=== PATIENT | male | born 1975 | race Caucasian/White ===

== ENCOUNTER 2017-06-14 07:59 | Inpatient (IN) | payer MEDICAID ==
--- NOTE | 2017-06-14 08:00 | EDPHY ---
H & P Time Seen by Provider: 06/14/17 07:59 HPI/ROS: CHIEF COMPLAINT: Lightheaded HISTORY OF PRESENT ILLNESS: Patient arrives by EMS having felt sick for the last 2-3 days with nausea, myalgias, joint aches, subjective fever and mild headache. Today he felt very lightheaded and sat down at his desk and felt sick enough that he asked he EMS to bring him to the hospital for evaluation. Patient started feeling sick 3 days ago. He has had nausea and vomited several times and has decreased oral intake. Diarrhea. No abdominal pain. He has diffuse myalgias in all extremities and his low back which are severe, he took 600 mg oral ibuprofen today at 4:00 a.m.. He does work at [employer] and could be exposed to other sick people. REVIEW OF SYSTEMS: Eye: no change in vision ENT: no sore throat, no dental symptoms. Cardiac: no chest pain or syncope Pulmonary: Coughing but no hemoptysis and not short of breath Abdomen: Decreased oral intake Musculoskeletal: Does not have neck stiffness Skin: no rash Neuro: Mild headache, not severe Constitutional: Symptomatic fever and chills : no urinary symptoms A comprehensive 10 point review of systems is otherwise negative aside from elements mentioned in the history of present illness. PAST MEDICAL HISTORY: Negative Social history: No IV drug abuse or foreign travel General Appearance: Alert and conversant, cooperative. Eyes: No scleral icterus. ENT, Mouth: Dry mucous membranes. Normal tympanic membranes. No trismus. Respiratory: Normal respiratory effort, breath sounds equal, lungs are clear to auscultation. Cardiovascular: Regular rate and rhythm. Gastrointestinal: Abdomen is soft and non tender. Neurological: Alert and oriented x3. Normally conversant. Face symmetric, normal movement and sensation in all extremities. Skin: Warm and dry, no rashes. Musculoskeletal: No peripheral edema and no joint swelling. No midline spinal tenderness. Normal range of motion of the neck, no meningeal signs. Psychiatric: Not agitated. Emergency Department course/MDM: Most likely viral syndrome giving the patient nausea decreased oral intake and dehydration evidence by clinically dry mucous membranes. Chest x-ray to evaluate for pneumonia, Zofran for nausea, pain medication. IV hydration. 932: Discussed with Melinda Schmidt for [facility]. Blood cultures x2, lactate screening, IV ceftriaxone 1 g and azithromycin 500 mg for presumably community-acquired pulmonary infection. Platelet count noted to be low at 47 but no evidence of active bleeding. Rhabdomyolysis noted with CPK greater than 5000. 2 L IV normal saline ordered. Does not have SIRS criteria on emergency department evaluation. Constitutional: Initial Vital Signs Temperature (C) 36.7 C 06/14/17 07:59 Heart Rate 76 06/14/17 07:59 Respiratory Rate 18 06/14/17 07:59 Blood Pressure 91/61 L 06/14/17 07:59 O2 Sat (%) 97 06/14/17 07:59 O2 Delivery Mode Room Air Allergies/Adverse Reactions: No Known Allergies Allergy (Unverified 06/14/17 08:19) Home Medications: Medication Instructions Recorded NK [No Known Home Meds] 06/14/17 Medical Decision Making - Diagnostics EKG Interpretation: 12-lead EKG interpreted by me; official reading is in trace master. My interpretation is sinus rhythm rate 82 with left atrial abnormality otherwise normal electrical intervals. Imaging Results: Imaging Impressions Chest X-Ray 06/14/17 08:23 Impression: Findings consistent with airways disease are noted. Differential Diagnosis: The differential for myalgias considered including but not limited to viral syndrome, myositis, rhabdomyolysis, contusions. - Data Points Laboratory Results: Laboratory Results 06/14/17 08:05 06/14/17 08:05 06/14/17 06/14/17 06/14/17 08:05 08:05 08:05 WBC RBC Hgb Hct MCV MCH MCHC RDW Plt Count MPV Neut % (Auto) Lymph % (Auto) Grundy % (Auto) Eos % (Auto) Baso % (Auto) Nucleat RBC Rel Count Absolute Neuts (auto) Absolute Lymphs (auto) Absolute Monos (auto) Absolute Eos (auto) Absolute Basos (auto) Absolute Nucleated RBC Immature Gran % Immature Gran # Platelet Estimate ESR Sodium 133 mEq/L L mEq/L (134-144) Potassium 3.5 mEq/L mEq/L (3.5-5.2) Chloride 96 mEq/L L mEq/L (97-110) Carbon Dioxide 22 mEq/l mEq/l (22-31) Anion Gap 15 mEq/L mEq/L (8-16) BUN 24 mg/dL H mg/dL (7-23) Creatinine 1.6 mg/dL H mg/dL (0.7-1.3) Estimated GFR 47 Glucose 99 mg/dL mg/dL (70-100) Calcium 6.5 mg/dL L mg/dL (8.5-10.4) Total Bilirubin 0.7 mg/dL mg/dL 0.7 mg/dL mg/dL (0.1-1.4) (0.1-1.4) Conjugated Bilirubin 0.5 mg/dL mg/dL (0.0-0.5) Unconjugated Bilirubin 0.2 mg/dL mg/dL (0.0-1.1) AST 179 IU/L H IU/L (17-59) ALT 64 IU/L IU/L (21-72) Alkaline Phosphatase 71 IU/L IU/L (38-126) Creatine Kinase 4975 IU/L H IU/L (0-224) CK-MB (CK-2) Fraction 23.80 ng/mL H ng/mL (0-3.19) CK-MB (CK-2) % 0.5 % % (0.0-4.0) Creatine Kinase Interp NEGATIVE (NEGATIVE) Total Protein 6.9 g/dL g/dL (6.3-8.2) Albumin 3.8 g/dL g/dL (3.5-5.0) Procalcitonin 0.32 ng/mL H ng/mL (0.02-0.10) TSH 1.990 uIU/mL uIU/mL (0.465-4.680) Free T4 0.94 ng/dL ng/dL (0.59-2.19) Free T3 2.53 pg/mL L pg/mL (2.77-5.27) 06/14/17 08:05 WBC 7.18 10^3/uL 10^3/uL (3.80-9.50) RBC 4.96 10^6/uL 10^6/uL (4.40-6.38) Hgb 15.3 g/dL g/dL (13.7-17.5) Hct 43.4 % % (40.0-51.0) MCV 87.5 fL fL (81.5-99.8) MCH 30.8 pg pg (27.9-34.1) MCHC 35.3 g/dL g/dL (32.4-36.7) RDW 11.9 % % (11.5-15.2) Plt Count 47 10^3/uL L 10^3/uL (150-400) MPV 13.7 fL H fL (8.7-11.7) Neut % (Auto) 85.1 % H % (39.3-74.2) Lymph % (Auto) 10.2 % L % (15.0-45.0) Grundy % (Auto) 3.8 % L % (4.5-13.0) Eos % (Auto) 0.0 % L % (0.6-7.6) Baso % (Auto) 0.3 % % (0.3-1.7) Nucleat RBC Rel Count 0.0 % % (0.0-0.2) Absolute Neuts (auto) 6.12 10^3/uL 10^3/uL (1.70-6.50) Absolute Lymphs (auto) 0.73 10^3/uL L 10^3/uL (1.00-3.00) Absolute Monos (auto) 0.27 10^3/uL L 10^3/uL (0.30-0.80) Absolute Eos (auto) 0.00 10^3/uL L 10^3/uL (0.03-0.40) Absolute Basos (auto) 0.02 10^3/uL 10^3/uL (0.02-0.10) Absolute Nucleated RBC 0.00 10^3/uL 10^3/uL (0-0.01) Immature Gran % 0.6 % % (0.0-1.1) Immature Gran # 0.04 10^3/uL 10^3/uL (0.00-0.10) Platelet Estimate DECREASED L (ADEQ) ESR 44 MM/HR H MM/HR (0-15) Sodium Potassium Chloride Carbon Dioxide Anion Gap BUN Creatinine Estimated GFR Glucose Calcium Total Bilirubin Conjugated Bilirubin Unconjugated Bilirubin AST ALT Alkaline Phosphatase Creatine Kinase CK-MB (CK-2) Fraction CK-MB (CK-2) % Creatine Kinase Interp Total Protein Albumin Procalcitonin TSH Free T4 Free T3 Medications Given: Discontinued Medications Acetaminophen (Tylenol) 650 mg PO EDNOW ONE Stop: 06/14/17 08:24 Last Admin: 06/14/17 08:30 Dose: 650 mg Hydromorphone HCl (Dilaudid) 0.5 mg IVP EDNOW ONE Stop: 06/14/17 08:23 Last Admin: 06/14/17 08:31 Dose: 0.5 mg Sodium Chloride (Ns) 1,000 mls @ 0 mls/hr IV ONCE ONE; Wide Open PRN Reason: Protocol Stop: 06/14/17 08:25 Last Admin: 06/14/17 08:31 Dose: 1,000 mls Azithromycin 500 mg/ Dextrose 255 mls @ 255 mls/hr IV EDNOW ONE PRN Reason: Protocol Stop: 06/14/17 10:24 Last Admin: 06/14/17 11:19 Dose: Not Given Ceftriaxone Sodium/Dextrose (Rocephin 1 Gm (Premix)) 50 mls @ 100 mls/hr IV EDNOW ONE PRN Reason: Protocol Stop: 06/14/17 09:54 Last Admin: 06/14/17 09:38 Dose: 50 mls Sodium Chloride (Ns) 1,000 mls @ 0 mls/hr IV EDNOW ONE; Wide Open PRN Reason: Protocol Stop: 06/14/17 09:33 Last Admin: 06/14/17 09:38 Dose: 1,000 mls Sodium Chloride (Ns) 1,000 mls @ 3,000 mls/hr IV ONCE ONE Stop: 06/14/17 11:42 Last Admin: 06/14/17 12:27 Dose: 1,000 mls Ibuprofen (Motrin) 600 mg PO EDNOW ONE Stop: 06/14/17 08:24 Last Admin: 06/14/17 08:30 Dose: 600 mg Ondansetron HCl (Zofran) 4 mg IVP EDNOW ONE Stop: 06/14/17 08:23 Last Admin: 06/14/17 08:31 Dose: 4 mg Departure - Departure Disposition: [facility] Inpatient Acute Clinical Impression: Pneumonia Qualifiers: Pneumonia type: due to unspecified organism Laterality: bilateral Lung location : lower lobe of lung Qualified Code(s): J18.9 - Pneumonia, unspecified organism Rhabdomyolysis Qualifiers: Rhabdomyolysis type: non-traumatic Qualified Code(s): M62.82 - Rhabdomyolysis Acute renal failure Qualifiers: Acute renal failure type: unspecified Qualified Code(s): N17.9 - Acute kidney failure, unspecified Condition: Fair
--- NOTE | 2017-06-14 08:19 | CPEKG ---
Heart Rate: 82 RR Interval: 732 P-R Interval: 128 QRSD Interval: 68 QT Interval: 392 QTC Interval: 458 P [place]on: 72 QRS [place]: 61 T Wave [place]: 49 EKG Severity - BORDERLINE ECG - EKG Impression: SINUS RHYTHM EKG Impression: PROBABLE LEFT ATRIAL ABNORMALITY Electronically Signed By: Martin Vidal 14-Jun-2017 08:26:11
[2017-06-14] MEDS ORDERED: HYDROmorphONE/DILAUDID 1 MG/ML SYR IVP ONE (08:22)
[2017-06-14] MEDS ORDERED: ONDANSETRON 4 MG/2 ML VIAL IVP ONE (08:22)
[2017-06-14] MEDS ORDERED: ACETAMINOPHEN 325 MG TAB PO ONE (08:23)
[2017-06-14] MEDS ORDERED: IBUPROFEN 600 MG TAB PO ONE (08:23)
[2017-06-14] MEDS ORDERED: NS 1,000 ML IV ONE ×3 (08:24→11:23)
[2017-06-14 08:33] LABS: % IMMATURE GRANULYOCYTES 0.6 % (0.0-1.1); ABSOLUTE IMMATURE GRANULOCYTES 0.04 10^3/uL (0.00-0.10); ADD DIFF? NO; ADD MORPH? NO; FRAGMENT RBC FLAG 0 (0-99); HEMATOCRIT 43.4 % (40.0-51.0); HEMOGLOBIN 15.3 g/dL (13.7-17.5); LEFT SHIFT FLG 0 (0-99); LIPEMIA HEMOLYSIS FLAG 90 (0-99); MEAN CELL HEMOGLOBIN 30.8 pg (27.9-34.1); MEAN CELL HEMOGLOBIN CONCENTR. 35.3 g/dL (32.4-36.7); MEAN CELL VOLUME 87.5 fL (81.5-99.8); MEAN PLATELET VOLUME 13.7 fL (8.7-11.7); PLATELET CLUMPS FLAG 0 (0-99); RED CELL DISTRIBUTION WIDTH 11.9 % (11.5-15.2)
[2017-06-14 08:34] LABS: ATYPICAL LYMPHOCYTE FLAG 110 (0-99); PLATELET COUNT 47 10^3/uL (150-400)
[2017-06-14 08:36] LABS: RED BLOOD CELL COUNT 4.96 10^6/uL (4.40-6.38)
[2017-06-14 08:42] LABS: ANION GAP 15 mEq/L (8-16); CALCIUM 6.5 mg/dL (8.5-10.4); CARBON DIOXIDE 22 mEq/l (22-31); CHLORIDE 96 mEq/L (97-110); CREATININE 1.6 mg/dL (0.7-1.3); GLOMERULAR FILTRATION RATE 47; GLUCOSE 99 mg/dL (70-100); POTASSIUM 3.5 mEq/L (3.5-5.2); SODIUM 133 mEq/L (134-144)
[2017-06-14 09:11] LABS: CK-MB INTERPRETATION NEGATIVE (NEGATIVE)
[2017-06-14 09:22] LABS: SCAN NEGATIVE
[2017-06-14 09:23] LABS: ADD SCAN? NO
[2017-06-14 09:24] LABS: PLATELET ESTIMATE DECREASED (ADEQ)
[2017-06-14] MEDS ORDERED: AZITHROMYCIN IV 500 MG in D5W 250 ML IV ONE (09:25)
[2017-06-14 09:41] LABS: BILIRUBIN,TOTAL 0.7 mg/dL (0.1-1.4)
[2017-06-14 10:38] LABS: SEDIMENTATION RATE 44 MM/HR (0-15)
[2017-06-14 10:43] LABS: INR 1.16 (0.83-1.16); PROTIME(PATIENT) 14.8 SEC (12.0-15.0)
[2017-06-14 10:44] LABS: APTT 41.6 SEC (23.0-38.0)
[2017-06-14 10:46] LABS: TOTAL PROTEIN 6.9 g/dL (6.3-8.2)
[2017-06-14 10:47] LABS: ALBUMIN 3.8 g/dL (3.5-5.0); BILIRUBIN,TOTAL 0.7 mg/dL (0.1-1.4); BILIRUBIN-CONJUGATED 0.5 mg/dL (0.0-0.5); BILIRUBIN-UNCONJUGATED 0.2 mg/dL (0.0-1.1)
[2017-06-14 10:55] LABS: PROCALCITONIN 0.32 ng/mL (0.02-0.10)
[2017-06-14] MEDS ORDERED: ONDANSETRON 4 MG/2 ML VIAL IVP PRN (11:23)
[2017-06-14] MEDS ORDERED: ZOLPIDEM TARTRATE 5 MG TAB PO PRN (11:23)
[2017-06-14] MEDS ORDERED: ONDANSETRON DISINTEGRATING 4 MG TAB PO PRN (11:23)
[2017-06-14] MEDS ORDERED: ACETAMINOPHEN 325 MG TAB PO PRN (11:23)
--- NOTE | 2017-06-14 11:31 | PDGENHP ---
History and Physical History and Physical: HISTORY AND PHYSICAL CC: weakness and myalgias HISTORY: This is generally healthy man describes that 2 days ago he had onset of feeling very hot though no chills or sweats. He did not check his temperature but thought he was having fever. Over the next couple days he started having nausea vomiting and diarrhea in yesterday and today started having significant myalgias and arthralgias diffusely but prominently in the low back and quads. He feels somewhat weak in his arms. He has had some dizziness and lightheadedness and a sore throat. There is no cough, no shortness of breath no chest pain. There is no abdominal pain. He has no headache or neurologic symptoms. No skin rashes or lesions. He has not noticed any particular joints that were swelling hot or red. He has had no symptoms to suggest oral ulcerations or other mucosal abnormalities besides a sore throat. Prior to the last 48 hours he has not had any symptoms of illness that he was aware of. He has had no recent travel out of the [facility] and [place] where he lives. He has no recollection of eating any suspicious foods that might have been contaminated or infectious. He does not use any street drugs. He does not know of any associates relatives or other people it is close to that have similar symptoms. He has had no recent skin wounds. He has not had any significant exposure to animals. He does not have any known immune illness, and has not had any diagnoses or symptoms to suggest prior autoimmune diseases. He does not take any medications and has not recently taken any medications. 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 I have reviewed the list and ordered appropriate medicines. PHYSICAL EXAMINATION: Vital Signs: no fever, initial blood pressure slightly low otherwise vitals normal Examination: General: alert, oriented, good mentation, relaxed Skin: warm, dry, good color, some dry flaking over the chest and abdomen seemed to be left over from some recent sun exposure, otherwise no rash or other lesions No bleeding or bruising HEENT: he does have a notable pharyngitis which is mildly exudative Neck: no mass or jvd Resps: relaxed Lungs: clear breath sounds Heart: regular, no murmur Abdomen: soft, nondistended, nontender, +BS, no mass There is some mild diffuse tenderness of muscles but no palpable or visible abnormality, in the limbs back and chest and neck Extremities: no edema, warm with signs of good perfusion, joints appear normal and are nontender Neurologic: normal speech/language, normal referral management liaison, no focal weakness IV site: looks normal LABORATORY DATA: CPK 5000 Creatinine 1.6 AST mildly elevated just less than 200 RADIOLOGY STUDIES: My personal interpretation of the images of chest x-ray: no evidence of alveolar or interstitial infiltrates, effusions, or masses 12 LEAD EKG: Done in the ER, my personal reading of the tracing: Sinus rhythm with no acute abnormalities ASSESSMENT: -acute myositis, suspect infectious but autoimmune other possible causes exist -acute pharyngitis -acute mild hepatocellular necrosis -nausea vomiting diarrhea -acute renal failure, likely hemodynamic due to primarily the dehydration -acute hypotension to acute illness and the dehydration Overall this syndrome is most suggestive to me of an acute viral illness. He does not present any specific history to predict a given organism. Bacterial, other infectious, and non infectious causes are also possible. However the abrupt onset and the lack of other specific clues so far make these illnesses unlikely. Would consider the possibility of thyroid disorder, autoimmune disorder, as well as others. He does not take any medications this is not a medication side effect. He denies use of any street drugs. One could invoke something related to HIV infection, and I will try review his risks when he is alone in the room. PLANS: -continue aggressive rehydration and fluid resuscitation -at the moment I will not continue antibiotics -check viral and stool pathogen panels -check sedimentation rate, ANIA, Anca levels -will check some other specific viruses such as adenovirus panels but will want to talk with Infectious Disease before sorting out what listed viruses to test -infectious disease consultation -follow his organ functions and muscle enzyme levels very closely; if myositis worsens may need to consider muscle biopsy as well I have reviewed the patient's case in detail with Dr. Padilla
[2017-06-14] MEDS: NS 1,000 ML IV SCH ×2 (12:27→20:58)
[2017-06-14 12:48] LABS: COLOR PALE YELLOW; LEUKOCYTE ESTERASE,URINE NEGATIVE (NEGATIVE); NITRITE,URINE NEGATIVE (NEGATIVE)
[2017-06-14 12:59] LABS: MUCUS TRACE /lpf (NONE-1+)
[2017-06-14 13:04] LABS: BACTERIA NONE SEEN /hpf (NONE SEEN); RBC,URINE NONE SEEN /hpf (0-3)
[2017-06-14 13:20] LABS: PHENCYCLIDINE URINE BCH < 6 ng/ml (NEGATIVE); PHENCYCLIDINE URINE BCH NEGATIVE (NEGATIVE); TETRAHYDROCANNABINOL URINE < 5 ng/mL (NEGATIVE); TETRAHYDROCANNABINOL URINE NEGATIVE (NEGATIVE)
[2017-06-14] MEDS ORDERED: traMADol 50 MG TAB PO PRN (15:29)
[2017-06-14] MEDS: oxyCODONE IR 5 MG TAB PO PRN ×2 (15:48→20:51)
[2017-06-14] MEDS ORDERED: IOPAMIDOL (ISOVUE-300) 100 ML BTL ONE (16:16)
[2017-06-14] MEDS: methylPREDNISolone SOD SUCC 125 MG/2 ML VIAL IVP SCH ×2 (16:23→20:50)
--- NOTE | 2017-06-14 17:14 | GCON ---
[f rep st] CONSULTATION INFECTIOUS DISEASE CONSULTATION. REASON FOR CONSULTATION: Fever, thrombocytopenia and rhabdomyolysis. HPI: This is a 42-year-old, healthy male, whose problems date back to approximately , when he developed fever and severe muscle pain, as well as dizziness. He subsequently develop ed nausea, vomiting and sore throat on June 13. In addition, he describes a severe headache but no t the worst headache of his life without no light sensitivity, no neck stiffness. He also describes today developing hoarseness and dysphagia. Patient presented to the emergency room today after an episode of presyncope. He also describes a d ry cough. Patient feels some improvement in his nausea and headache today but still has severe musc le pain. Patient received a dose of ceftriaxone and azithromycin in the emergency room. PAST MEDICAL HISTORY: Patient reports a remote history of mono 20 years ago. FAMILY HISTORY: Negative for any inheritable diseases. 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 No street drugs. He has not ea ten raw fish or meat for a couple years. No children, no pets, no recent travel. He is not sexuall y active. He is heterosexual. He denies contact with any rabbits, prairie dogs. No recent camping or hiking. Patient denies fresh water exposure and/or fishing. ALLERGIES: NKDA. MEDICATIONS: None. Patient received azithromycin 500 and Rocephin 1 gram in the emergency room. REVIEW OF SYSTEMS: A complete 10-point review of systems was performed and is negative except as me ntioned in HPI. In addition, he describes some eye pain which he relates to inability to sleep due to severe muscle pain. Patient denies any sick contacts. PHYSICAL EXAM: VITAL SIGNS: Patient has been afebrile in our emergency room. Blood pressure 96/50, heart rate 70, respiratory rate 16, saturation 96% on room air, temperature 36.2. GENERAL: This is a young male lying flat in bed, mildly distressed secondary to muscle pain. HEENT: He has bilateral swelling of his pharynx with some exudate. No obvious dental caries. Obvious hoarse voice. He morris s injected conjunctivae. NECK: Supple. No meningismus. CARDIOVASCULAR: Regular rate and rhythm. No murmur. CHEST: He was not using his accessory muscles. He had crackles in the right base. AB DOMEN: Soft, nontender. Bowel sounds are present. EXTREMITIES: Patient has some diffuse tenderne ss of his muscles but no swelling including no joint swelling. SKIN: He has some peeling skin consi stent with sunburn obtained several days ago. NEUROLOGIC: He is alert and oriented x4. Normal cran ial nerves. No focal weakness. LABORATORY: White count 7, hematocrit 43, platelets of 47, 85% neutrophils, 10% lymphocytes. ESR 4 4. Creatinine is 1.6. Sodium 133, CK 4975, total bilirubin 0.7. AST 179, ALT 64. Procalcitonin 0. 32, lactate 0.8. Drug screen was negative. EBV, CMV, and HIV testing pending. Chest x-ray was personally reviewed by me which had no focal infiltrate, normal cardiomediastinal si lhouette. ASSESSMENT AND PLAN: This is a 42-year-old male, who presents with fever, severe myalgia with assoc iated , thrombocytopenia, severe pharyngitis with associated hoarseness and dysphagia and dry cough. Initial nasal swab for virus mycoplasma and chlamydia and pertussis is negative. Typical viral et iologies associated with rhabdomyolysis include influenza, EBV, herpes simplex, paraflu, HIV and CMV . Also could consider bacterial infection such as pneumonia or severe pharyngitis due to strep. Pa tient with minimal outdoor exposure seems to make tularemia or Coxiella unlikely. 1. Will discuss with hospitalist consideration of neck CT and chest CT in light of exam abnormaliti es. 2. Agree that viral etiology seems most likely with thrombocytopenia and lack of marked leukocytosi s. Will continue to follow up on CMV, EBV, and HIV testing as well as monitor blood cultures. Thank you for this consultation. We will continue to follow on a daily basis. /[id number]/MODL
[2017-06-15] MEDS: NS 1,000 ML IV SCH ×3 (03:48→17:28)
[2017-06-15 05:43] LABS: ALANINE AMINOTRANSFERASE 89 IU/L (21-72); ALBUMIN 2.6 g/dL (3.5-5.0); ALKALINE PHOSPHATASE 54 IU/L (38-126); ANION GAP 10 mEq/L (8-16); ASPARTATE AMINOTRANSFERASE 374 IU/L (17-59); BILIRUBIN,TOTAL 0.4 mg/dL (0.1-1.4); BILIRUBIN-CONJUGATED 0.2 mg/dL (0.0-0.5); BILIRUBIN-UNCONJUGATED 0.2 mg/dL (0.0-1.1); CARBON DIOXIDE 19 mEq/l (22-31); CHLORIDE 107 mEq/L (97-110); CREATININE 0.7 mg/dL (0.7-1.3); GLOMERULAR FILTRATION RATE > 60; GLUCOSE 164 mg/dL (70-100); POTASSIUM 3.8 mEq/L (3.5-5.2); SODIUM 136 mEq/L (134-144); TOTAL PROTEIN 5.5 g/dL (6.3-8.2)
[2017-06-15] MEDS: methylPREDNISolone SOD SUCC 125 MG/2 ML VIAL IVP SCH ×3 (06:23→23:24)
[2017-06-15] MEDS: ENOXAPARIN 40 MG/0.4 ML SYR SC SCH (08:22)
[2017-06-15] MEDS: NICOTINE 14 MG/24 HR PATCH TD SCH (08:23)
[2017-06-15 10:16] LABS: CK-MB INTERPRETATION NEGATIVE (NEGATIVE)
--- NOTE | 2017-06-15 11:02 | PCMIDPN ---
Assessment/Plan: Assessment/Plan: 1. Fever, myalgias, pharyngitis/tonsillar enlargement, rhabdo, hepatitis, patchy pulm infiltrates: - Resp panel, Hiv negative - LFT and CPK trending up but not unexpected, creatinine has improved - Will recheck labs in AM. -will add autoimmune work up as well -Hold additional antibiotics for now. Clinically improving. MEds s/p azithro, ceftriaxone Subjective: Afebrile. FEeling better but still with myalgias and difficulty weight bearing due to that. Denies sob, cough or sputum production. Denies abd pain, nausea, right upper pain, or diarrhea. denies urinary symptoms. has sunburn on chest and legs. still with odynophagia but is able to get down liquids. Objective: Vital Signs Temp Pulse Resp BP Pulse Ox 36.3 C 64 16 93/60 L 97 06/15/17 07:17 06/15/17 07:17 06/15/17 07:17 06/15/17 07:17 06/15/17 07:17 Microbiology 06/15/17 08:20 Respiratory Panel (PCR) - Final Unspecified 06/14/17 11:45 Respiratory Panel (PCR) - Final Nasal, Sinus - Swab No Organism Detected Laboratory Results 06/15/17 05:05 06/14/17 06/15/17 06/16/17 05:59 05:59 05:59 Intake Total 5425 Output Total 1575 900 Balance 3850 -900 ESR 44 MM/HR (0-15) H 06/14/17 08:05 - Physical Exam General Appearance: alert, no apparent distress EENT: pharyngeal erythema, other (tonsillar enlargment. ), No tonsillar exudate , No thrush Respiratory: coarse breath sounds (mild bilateral.) Cardiac/Chest: regular rate, rhythm Extremities: No swelling Abdomen: normal bowel sounds, non-tender, soft, No distended Skin: other (sun burn on chest and abdomen, nontender to palpation. no bullae, vesicles, pustules noted.. mild sunburn on legs but mostly peeling areas. ) ICD10 Worksheet Patient Problems: Problems Problem Status Onset Acute renal failure Acute Pneumonia Acute Rhabdomyolysis Acute
[2017-06-15 13:55] LABS: ANTI EBNA Positive (Negative); ANTI VCA/IgG Positive (Negative); ANTI VCA/IgM Negative (Negative)
[2017-06-15 15:31] VITALS: RESP 16
--- NOTE | 2017-06-15 16:41 | HOSPPROG ---
Hospitalist Progress Note Assessment/Plan: DIAGNOSES: Acute systemic illness of uncertain etiology with viral illness highly suspected but nothing identified as a cause at this time -acute myositis with rising CPK levels and ongoing muscle pain -acute pharyngitis -acute mild hepatocellular necrosis versus myositis as cause mild transaminase elevation -nausea vomiting diarrhea have resolved and no abdominal pain present -acute renal failure, likely hemodynamic due to primarily the dehydration, has resolved overnight with hydration -acute hypotension to acute illness and the dehydration also resolved with hydration Differential diagnosis includes viral or other infectious illness, autoimmune illness. He takes no medications that would cause this. Negative workup so far includes HIV testing, of respiratory viral pathogen panel , blood cultures negative to date so far all other infectious serologies and some autoimmune serologies are pending at this time PLANS: -Continue IV hydration -Continue to follow pending test results -For the moment will continue steroid due to significant throat swelling but will begin decreasing the dose there -Is any etiology is not found in the way of an infectious agent, would consider consultation with surgery for muscle biopsy and rheumatology consultation especially if not resolving his myositis SUBJECTIVE: At this time nausea vomiting and diarrhea have all resolved and there is no abdominal Pain Muscles continue to be quite painful diffusely. Still no cough shortness of breath chest discomfort or other respiratory symptoms He does still have significant pharyngitis pain No other new symptoms have developed OBJECTIVE Vitals reviewed: stable without any fevers noted Exam: alert oriented skin warm dry color ok with no rash bleeding bruising or other lesions he still has some mild diffuse muscle tenderness with no palpable abnormality, no swelling, no fasciculations resps not labored lungs clear BSs heart regular abd soft nondistended nontender, bowel sounds present limbs warm, no edema iv site ok Objective: Vital Signs Temp Pulse Resp BP Pulse Ox 36.4 C 69 16 98/64 L 97 06/15/17 15:30 06/15/17 15:30 06/15/17 15:30 06/15/17 15:30 06/15/17 15:30 Microbiology 06/15/17 08:20 Gram Stain - Final Throat - Swab 06/15/17 08:20 Respiratory Panel (PCR) - Final Unspecified 06/14/17 11:45 Respiratory Panel (PCR) - Final Nasal, Sinus - Swab No Organism Detected Laboratory Results 06/15/17 05:05 06/14/17 06/15/17 06/16/17 06:59 06:59 06:59 Intake Total 5425 Output Total 1575 1500 Balance 3850 -1500 PT 14.8 SEC (12.0-15.0) 06/14/17 10:26 INR 1.16 (0.83-1.16) 06/14/17 10:26 ICD10 Worksheet Patient Problems: Problems Problem Status Onset Acute renal failure Acute Pneumonia Acute Rhabdomyolysis Acute
[2017-06-15] MEDS: oxyCODONE IR 5 MG TAB PO PRN ×2 (19:11→23:24)
[2017-06-16] MEDS: NS 1,000 ML IV SCH (01:25)
[2017-06-16] MEDS: methylPREDNISolone SOD SUCC 125 MG/2 ML VIAL IVP SCH ×2 (05:20→14:35)
[2017-06-16 06:15] LABS: % IMMATURE GRANULYOCYTES 0.6 % (0.0-1.1); ABSOLUTE IMMATURE GRANULOCYTES 0.03 10^3/uL (0.00-0.10); ADD DIFF? NO; ADD MORPH? NO; ADD SCAN? YES; FRAGMENT RBC FLAG 0 (0-99); HEMATOCRIT 38.8 % (40.0-51.0); HEMOGLOBIN 13.6 g/dL (13.7-17.5); LEFT SHIFT FLG 10 (0-99); LIPEMIA HEMOLYSIS FLAG 90 (0-99); MEAN CELL HEMOGLOBIN 30.7 pg (27.9-34.1); MEAN CELL HEMOGLOBIN CONCENTR. 35.1 g/dL (32.4-36.7); MEAN CELL VOLUME 87.6 fL (81.5-99.8); PLATELET CLUMPS FLAG 20 (0-99); RED BLOOD CELL COUNT 4.43 10^6/uL (4.40-6.38); RED CELL DISTRIBUTION WIDTH 11.9 % (11.5-15.2)
[2017-06-16 06:17] LABS: ATYPICAL LYMPHOCYTE FLAG 170 (0-99); PLATELET COUNT 31 10^3/uL (150-400)
[2017-06-16 06:35] LABS: ALANINE AMINOTRANSFERASE 112 IU/L (21-72); ALBUMIN 2.6 g/dL (3.5-5.0); ALKALINE PHOSPHATASE 53 IU/L (38-126); ANION GAP 6 mEq/L (8-16); ASPARTATE AMINOTRANSFERASE 458 IU/L (17-59); BILIRUBIN,TOTAL 0.4 mg/dL (0.1-1.4); CARBON DIOXIDE 25 mEq/l (22-31); CHLORIDE 106 mEq/L (97-110); CREATININE 0.6 mg/dL (0.7-1.3); GLOMERULAR FILTRATION RATE > 60; GLUCOSE 203 mg/dL (70-100); POTASSIUM 3.9 mEq/L (3.5-5.2); SODIUM 137 mEq/L (134-144); TOTAL PROTEIN 5.5 g/dL (6.3-8.2)
[2017-06-16 06:51] LABS: SCAN POSITIVE
[2017-06-16 06:56] LABS: PLATELET ESTIMATE DECREASED (ADEQ)
[2017-06-16 07:27] LABS: CK-MB INTERPRETATION NEGATIVE (NEGATIVE)
--- NOTE | 2017-06-16 09:14 | HOSPPROG ---
Hospitalist Progress Note Assessment/Plan: 1. Acute systemic illness of uncertain etiology -stool tests with campylo and e coli. Currently asymptomatic and other testing for etiology neg so far, autoimm labs pending -discussed care plan with ROCIO Sarabia to discharge home with precautions, no Tx for GI pathogens -will do FU with Dr Love this week -STRONGLY advised to set up a PCP -acute myositis with rising CPK levels -improving labs and sxs -acute pharyngitis -resolved -change to prednisone for short burst -acute mild hepatocellular necrosis versus myositis as cause mild transaminase elevation -FU as outpt -nausea vomiting diarrhea -sxs have resolved -campylobacter and e coli identified -acute renal failure, likely hemodynamic due to primarily the dehydration -resolved overnight with hydration -acute hypotension to acute illness and the dehydration -resolved with hydration -thombocytopenia -reactive vs underlying/chronic -recheck as outpt, bleeding precautions revwd -may need heme onc eval Dispo- dc today Subjective: feels well, wants to go home. No diarrhea, had 2 BMs yesterday. Works in [employer] at [employer]. No PCP. Denies easy bruising/bleeding. No camping , simming in [facility], known exposure to diarrhea illness. Objective: Vital Signs Temp Pulse Resp BP Pulse Ox 97.6 F 73 16 107/72 96 06/16/17 07:20 06/16/17 07:20 06/16/17 07:20 06/16/17 07:20 06/16/17 07:20 Microbiology 06/15/17 08:20 Gram Stain - Final Throat - Swab 06/15/17 16:45 Gastrointestinal Tract Panel (PCR) - Final Stool Campylobacter Species E.coli Enteroaggregative(Eaec) 06/15/17 08:20 Respiratory Panel (PCR) - Final Unspecified Laboratory Results 06/16/17 05:31 06/16/17 06:00 06/14/17 06/15/17 06/16/17 11:59 11:59 11:59 Intake Total 1999 2371 2287 Output Total 2373 1269 Balance 1999 950 -61 PT 14.8 SEC (12.0-15.0) 06/14/17 10:26 INR 1.16 (0.83-1.16) 06/14/17 10:26 - Time Spent With Patient Time Spent with Patient: greater than 35 minutes Time Spent with Patient: Greater than 35 minutes spent on this patients care, greater than 50% of time spent counseling, educating, and coordinating care regarding the above mentioned plan. - Pending Discharge Pending Discharge Within 24 Hours: Yes Pending Discharge Date: 06/18/17 Pending Discharge Time: 11:00 - Physical Exam Constitutional: no apparent distress, appears nourished, not in pain Eyes: PERRL, anicteric sclera, EOMI Ears, Nose, Mouth, Throat: moist mucous membranes, hearing normal Cardiovascular: regular rate and rhythym, no murmur, rub, or gallop Respiratory: no respiratory distress, no rales or rhonchi, clear to auscultation Gastrointestinal: normoactive bowel sounds, soft, non-tender abdomen, no palpable masses Lymph, Heme, Immunologic: other (no bleeding from gums), No ecchymoses, No petechiae ICD10 Worksheet Patient Problems: Problems Problem Status Onset Acute renal failure Acute Pneumonia Acute Rhabdomyolysis Acute
[2017-06-16] MEDS: ENOXAPARIN 40 MG/0.4 ML SYR SC SCH (09:42)
[2017-06-16] MEDS: NICOTINE 14 MG/24 HR PATCH TD SCH (09:42)
[2017-06-16 11:13] VITALS: BP 108/61; PULSE 77; TEMP 99.6; O2SAT 92
--- NOTE | 2017-06-16 13:03 | PCMIDPN ---
Assessment/Plan: Assessment/Plan: 1. Fever, myalgias, pharyngitis/tonsillar enlargement, rhabdo, hepatitis, patchy pulm infiltrates: - Resp panel, Hiv negative - LFT still trending up, pt asymptomatic. -CPK trending down now. - CMV neg, EBV reflective of past exposure. Autoimmune work up pending -stool with campy plus E. coli. - Clinically improving with resolution of diarrhea. - Still with low platelets. Counsled patient extensively regarding avoid contact sports, wear proper shoes, avoiding falls and injuries to body, head etc. -will f/u patient in office 06/19/17 at 9am. appt card given to patient. Will check f/u labs at that visit. -care coordinated with hospitalist team MEds s/p azithro, ceftriaxone Subjective: afebrile. feels much better today. states myalgias are mostly resolved. denies arthralgias. denies sob. mild sorethroat. able to eat and drink wihtout difficulty. denies diarrhea. denies abd pain. Objective: Vital Signs Temp Pulse Resp BP Pulse Ox 37.6 C 77 16 108/61 92 06/16/17 11:11 06/16/17 11:11 06/16/17 11:11 06/16/17 11:11 06/16/17 11:11 Microbiology 06/15/17 08:20 Gram Stain - Final Throat - Swab 06/15/17 16:45 Gastrointestinal Tract Panel (PCR) - Final Stool Campylobacter Species E.coli Enteroaggregative(Eaec) 06/15/17 08:20 Respiratory Panel (PCR) - Final Unspecified Laboratory Results 06/16/17 05:31 06/16/17 06:00 06/15/17 06/16/17 06/17/17 05:59 05:59 05:59 Intake Total 5425 2389 Output Total 1575 2750 1200 Balance 3850 -361 -1200 ESR 44 MM/HR (0-15) H 06/14/17 08:05 - Physical Exam General Appearance: alert, no apparent distress EENT: other (posterior pharyngeal erythema. no exudates. no thrush) Respiratory: lungs clear Cardiac/Chest: regular rate, rhythm Extremities: No swelling Abdomen: normal bowel sounds, non-tender, soft, No distended Skin: other (sun burn on chest) ICD10 Worksheet Patient Problems: Problems Problem Status Onset Acute renal failure Acute Pneumonia Acute Rhabdomyolysis Acute
--- NOTE | 2017-06-17 08:27 | GDS ---
[f rep st] DISCHARGE SUMMARY SERVICE: [facility] hospitalist. CONSULTS: Infectious Disease. HISTORY AND PHYSICAL: Please see previously dictated note by Dr. Angelo. ADMISSION DIAGNOSES: Acute myositis, acute renal failure, acute hepatocellular necrosis, likely acu te viral gastrointestinal illness and thrombocytopenia. DISCHARGE DIAGNOSES: Acute myositis, acute renal failure, acute hepatocellular necrosis, likely acu te viral gastrointestinal illness, stool cultures subsequently have grown out Escherichia coli and C ampylobacter and thrombocytopenia. HOSPITAL COURSE BY PROBLEM LIST: 1. Acute systemic illness, suspected viral. He was initially admitted for IV hydration and support fernanda care. He was noted to have thrombocytopenia and transaminitis along with acute GI symptoms whic h suggested a viral etiology. Stool cultures were done and subsequently returned with E coli and Ca mpylobacter. Infectious Disease was consulted and multiple serologies were ordered including CMV, E BV and HIV. He showed immunity to CMV and EBV and a negative HIV screening test. Symptomatically i mproved over the course of his stay. On the day of discharge, he was no longer having any nausea, v omiting. He was tolerating a full diet and no further diarrhea was noted. After a discussion with Dr. Love, Infectious Disease, it was felt that he could discharge home with strong precautions to ret urn to reveal oliva if he had any return of symptoms. He does not have a primary care provider which I have encouraged him to arrange. Dr. Love will schedule him a followup appointment in the [facility] for the upcoming week and will draw repeat laboratories at that time. Of note, re spiratory panel was negative, throat culture was negative, blood cultures were negative. He does morris ve several rheumatology labs that are pending at time of discharge, and Dr. Love can review these leda ts at his followup appointment. 2. Thrombocytopenia. He was noted to have a platelet count of 47 at admission. There are no previ ous platelet counts for comparison. He denied any knowledge of a previous thrombocytopenia diagnosi s and also denied any acute bleeding symptoms. On the day of discharge, his platelet count was 31 a nd he was asymptomatic from a bleeding standpoint. He had been started on steroids, this will be co ntinued as a burst dosing. No indication for platelet transfusion at this time. No indication for inpatient Heme-Onc consultation. However, should have a repeat CBC as an outpatient and if platelet count is not starting to trend upward, suggest a Hematology/Oncology referral as an outpatient. Of note, INR was 1.16. 3. Acute renal insufficiency. Was noted to have a creatinine of 1.6 at admission. After IV hydrat ion, creatinine returned to normal, and at discharge it was 0.6. 4. Transaminitis. Initially presented with an elevated creatine kinase of 4975, which went to 12,0 69 the following day. On the day of discharge, it was decreased again to 9105. He was feeling much better and was asymptomatic. At day of discharge, his transaminases were also elevated with an AST of 458 and an ALT of 112. As he was asymptomatic and otherwise healthy prior to admission, he can discharge home with outpatient re-evaluation and followup. I have discussed with him the need to pu sh fluids and to watch the color of his urine. 5. Acute pharyngitis. As above, throat culture was negative. Some steroids were started and will be changed to oral prednisone for a short high dose burst. 6. Acute hypotension. Likely related to the acute illness with dehydration. Symptoms resolved wit h IV hydration, and at time of discharge, he denied any dizziness, lightheadedness, nausea, vomiting , diarrhea, or abdominal pain. DISCHARGE MEDICATIONS: Please see discharge packets, but in brief, prednisone 40 mg daily and a Mega oDerm patch. DISCHARGE INSTRUCTIONS: He should call Dr. Love's office for a followup appointment this week as he will need repeat lab studies as above. If at any time, he has return of nausea, vomiting, dark urin e, unable to remain hydrated orally, fever, headache or other symptoms, he needs to return immediate ly to the emergency department for re-evaluation. Otherwise, he will follow up with Dr. Love this we ek. Have strongly encouraged him to arrange a primary care provider also. /[id number]/MODL
== END 2017-06-16 14:55 | disposition home or self-care (01) | DRG 866 ==
LOC: EDUNIT# → F3E 10:43
PROVIDERS: ADMIT Internal Medicine; ATTEND Family Medicine
DX: B34.9 Viral infection, unspecified (principal); M62.82 Rhabdomyolysis; N17.9 Acute kidney failure, unspecified; M60.9 Myositis, unspecified; J02.9 Acute pharyngitis, unspecified; E86.0 Dehydration; D69.6 Thrombocytopenia, unspecified
CPT/HCPCS: 80307; 83516-90; 83520-90; 84481-90; 86644-90; 86645-90; 86664-90; 86665-90; 96374; G0480; J0456; J0696; J1170; J1650; J2405; Q9967